=== PATIENT | female | born 1945 | race Caucasian/White ===

== ENCOUNTER 2021-05-20 10:02 | Day surgery (SDC) | payer OTHER, SELFPAY ==
--- NOTE | 2021-05-20 | PATH_ITS ---
[facility] Accession Number: [id number] . 01 Material submitted: . PART A: stomach - ANTRUM NODULE PART B: gastrointestinal site - GASTRIC POLYPS PART C: esophagus - DISTAL ESOPHAGUS . 02 Diagnosis: A. Antrum Nodule: Portion of gastric antral mucosa with features of reactive gastropathy and mild chronic inflammation. Negative for Helicobacter organisms by immunohistochemistry. Negative for intestinal metaplasia. Negative for dysplasia or malignancy. . B. Gastric Polyps: Fundic gland polyps x2. No evidence of Helicobacter organisms on H/E stain. Negative for intestinal metaplasia. Negative for dysplasia and malignancy. . C. Distal Esophagus: Columnar mucosa with specialized intestinal metaplasia, consistent with Mancia's esophagus. Negative for dysplasia and malignancy. No squamous mucosa identified for evaluation. [facility] 05/23/2021 1414 Local . 02 Electronically signed: . Trena Mason MD, Pathologist NPI- [id number] . 01 Gross description: . Part A: ANTRUM NODULE: Received in formalin is 1 fragment(s) of barron, soft tissue measuring 0.4 x 0.2 x 0.1 cm submitted entirely in 1 cassette(s) Part B: GASTRIC POLYPS: Received in formalin are 2 fragment(s) of barron, soft tissue measuring 0.4 x 0.2 x 0.2 cm to 0.3 x 0.2 x 0.1 cm submitted entirely in 1 cassette(s) Part C: DISTAL ESOPHAGUS: Received in formalin are 2 fragment(s) of barron, soft tissue measuring 0.3 x 0.3 x 0.2 cm to 0.2 x 0.2 x 0.1 cm submitted entirely in 1 cassette(s) /[facility] 05/21/2021 0410 Local . 02 Microscopic: . A. An immunohistochemical stain was performed to evaluate for Helicobacter organisms and is negative. The control stain showed appropriate reactivity. . * This test was developed and its performance characteristics determined by [facility]. It has not been cleared or approved by the U.S. Food and Drug Administration. The FDA has determined that such clearance or approval is not necessary. This test is used for clinical purposes. It should not be regarded as investigational or for research. . 02 Pathologist provided ICD-10: K21.9, K22.70 . 02 CPT . 054648, 431371, 219808, G77389 Performed at: 01 [facility] [address] [address], [place], [place] [id number] MD Andre Farmer MD Phone: [phone] Performed at: 02 [facility] [address] [place] [id number] MD Jammie Cantrell MD Phone: [phone]
[2021-05-20 11:01] LABS: COVID19 -Nasal RAPID Negative (Negative)
[2021-05-20 11:32] VITALS: BP 145/72; PULSE 70; RESP 16; TEMP 36.6; O2SAT 98; BMI 38.7
[2021-05-20] MEDS: SODIUM CHLORIDE 0.9% 1,000 ML 84 ML IV (11:48)
--- NOTE | 2021-05-20 12:02 | P.HP_ITS ---
History of Present Illness History of Present Illness Date Patient Seen: 05/20/21 Time Patient Seen: 12:02 Chief complaint: EGD Patient History Medical History Atrial fibrillation Barretts esophagus Hyperlipidemia Hypertension IBS (irritable bowel syndrome) Mitral valve regurgitation Sleep apnea Surgical History H/O oophorectomy H/O: hysterectomy History of appendectomy History of cholecystectomy History of total right knee replacement Family & Social History Social History: household members spouse Tobacco & Substance use: Smoking Status Never smoker alcohol intake frequency a few times a week Substance Use Type does not use Meds Home Medications and Allergies Home Medications Medication Instructions Recorded Confirmed Type amlodipine 5 mg tablet 5 mg PO DAILY 05/20/21 05/20/21 History apixaban 5 mg tablet (Eliquis) 5 mg PO BID 05/20/21 05/20/21 History atorvastatin 20 mg tablet 20 mg PO DAILY 05/20/21 05/20/21 History metformin 500 mg tablet 500 mg PO BID 05/20/21 05/20/21 History omeprazole 20 mg tablet,delayed 20 mg PO DAILY 05/20/21 05/20/21 History release Allergies Allergy/AdvReac Type Severity Reaction Status Date / Time codeine Allergy Verified 05/20/21 11:29 Review of Systems Review of Systems ROS: Yes All systems reviewed with the patient and are negative except as otherwise documented Exam Vital Signs (past 8 hours): - 05/20/21 11:32 Temperature 97.9 F Pulse Rate 70 Respiratory Rate 16 Blood Pressure 145/72 H Pulse Oximetry 98 Oxygen Delivery Method Room Air Const General: cooperative and comfortable Orientation: alert [facility] Head: normocephalic Ears: external ears normal Nose: external nose normal Face and sinus: normal facial exam Mouth: oral mucosae normal Eyes General: appearance normal, both eyes and all related structures Neck Neck: normal visual inspection Chest Chest: normal inspection of the chest Resp Effort & Inspection: normal respiratory effort Auscultation: clear to auscultation bilaterally Cardio Rate: regular rate Rhythm: regular rhythm Heart Sounds: no murmurs GI Inspection: normal to inspection Palpation: soft and No tender Auscultation: normal bowel sounds Skin General: no rashes or lesions noted and No jaundice Neuro General: patient alert and moves all extremities Cognition: normal cognition Speech: speech normal Extrem General: no pedal edema Psych Appearance: grossly normal Objective Labs Labs: Laboratory Results - last 24 hr 05/20/21 10:30 SARS-CoV-2 (PCR) Negative Assessment & Plan Assessment & Plan narrative: Personal history of non dysplastic Mancia's. EGD is planned for surveillance today.
--- NOTE | 2021-05-20 12:04 | PM.PREOP ---
Pre-operative Note COVID-19 COVID-19 status: Negative Result date/Date tested (Pos, Neg/Pending): 05/20/21 Interval Note History & Physical reviewed/Exam performed by Physician: Yes Changes to H&P: No ASA Class (for procedural sedation): II
[2021-05-20] MEDS: LIDOCAINE 4% SOLN 50 ML 20 ML TOP (12:08)
[2021-05-20] MEDS: fentaNYL 250 MCG/5 ML INJ IV (12:12)
[2021-05-20] MEDS: MIDAZOLAM 5 MG/5 ML VIAL IV (12:12)
--- NOTE | 2021-05-20 12:26 | P.OP.ENDO_ITS ---
Operative Date/Time/Diagnoses Date of procedure: 05/20/21 Time of procedure: 12:27 Pre-op diagnosis: Mancia's esophagus Post-op diagnosis: same Procedure & Clinicians Study performed: EGD with biopsies Same procedure as scheduled: Yes Indications: Mancia's esophagus Surgeon: Abelino Singer Procedure Notes SCOAP/Timeout: Done Procedure in detail: After the risks and benefits were explained, written and verbal informed consent was obtained. The patient was brought into the procedure room and placed into the left lateral decubitus position. Conscious sedation medication was applied as per nursing documentation. The scope was introduced into the mouth through the bite block and advanced under direct visualization to the 2nd portion of the duodenum. The scope was slowly withdrawn carefully examining the mucosa for any defects or lesions. Retroflexed views were accomplished in the stomach. The stomach was decompressed, the scope was then removed from the patient who tolerated the procedure well. 3 mg Versed 75 mcg fentanyl Scope withdrawal time: Not applicable Sedation minutes: 15 Complications: none Impression: 1. Duodenum: No pathology was identified from the bulb through to the 2nd portion. 2. Stomach: Mild gastropathy. There was a subtle nodule noted in the proximal antrum which was biopsied. There were several small gastric polyps in the body and fundus region. Couple of these were sampled with forceps for a office machines sales representative histology. The patient did not retain a lot of air during our examination so retroflexed views were a little challenging but I did not appreciate any pathology within the hiatal hernia sac. 3. Esophagus: Sliding hiatal hernia was noted. The gastroesophageal junction was at approximately 33 cm and the top margin of the salmon-colored mucosa was that perhaps 29 cm. I would rate this as C3 am for by the progress criteria. Four-quadrant biopsies were taken at approximately 31 cm from the incisors. No other esophageal pathology was identified. Endoscopic diagnosis 1. C3 M4 for Mancia's 2. Hiatal hernia 3. Gastric polyps 4. Antral nodule Post-procedure Plan for aftercare: 1. Await histopathology 2. Continue anti-reflux therapy 3. If nondysplastic Mancia's is again confirmed, repeat EGD will likely be suggested for 3 years time. Disposition: PACU
[2021-05-20 12:33] VITALS: BP 113/61; PULSE 63; RESP 17; TEMP 36.6; O2SAT 93
[2021-05-20 12:38] VITALS: BP 109/50; PULSE 68; RESP 19; O2SAT 96
[2021-05-20 12:43] VITALS: BP 101/61; PULSE 67; RESP 10; O2SAT 95
--- NOTE | 2021-05-20 12:44 | SUR.PHASEI ---
Stable PACU stay, hob elevated, fluids given.
[2021-05-20 12:47] VITALS: BP 109/63; PULSE 65; RESP 16; O2SAT 96
--- NOTE | 2021-05-20 12:54 | SUR.PHASEI ---
1247 Pt transferred to Phase II. Nursing outcomes met.
[2021-05-20 12:58] VITALS: BP 115/63; PULSE 63; RESP 14; TEMP 36.2; O2SAT 97
== END 2021-05-20 13:04 | disposition home or self-care (01) ==
PROVIDERS: PCP Family Medicine; Referring Provider Internal Medicine Gastroenterology; Visit Provider Internal Medicine Gastroenterology
PROC: 0DJ08ZZ Inspection of Upper Intestinal Tract, Via Natural or Artificial Opening Endoscopic (ICD-10-PCS; CPT 43235; principal; 2021-05-20 11:30)
DX: K22.70 Barrett's esophagus without dysplasia (principal); I48.0 Paroxysmal atrial fibrillation; Z79.01 Long term (current) use of anticoagulants; G47.30 Sleep apnea, unspecified; I10 Essential (primary) hypertension; R73.03 Prediabetes; E78.5 Hyperlipidemia, unspecified; Z20.822 Contact with and (suspected) exposure to COVID-19; K44.9 Diaphragmatic hernia without obstruction or gangrene; K31.7 Polyp of stomach and duodenum; K31.9 Disease of stomach and duodenum, unspecified; K29.50 Unspecified chronic gastritis without bleeding
CPT/HCPCS: 43239; 87635; J2250; J3010